=== PATIENT | male | born 1980 | race Caucasian/White ===

== ENCOUNTER 2017-07-07 23:59 | Emergency (ER) | payer OTHER ==
[2017-07-08] MEDS ORDERED: ZIPRASIDONE 20 MG INJ IM ONE ×2 (00:17→00:30)
[2017-07-08] MEDS ORDERED: LORazepam 2 MG/ML, 1ML ONE ×2 (00:19→02:21)
[2017-07-08] MEDS ORDERED: SODIUM CHLORIDE 0.9% 1,000ML IVBOLUS ONE (00:30)
[2017-07-08] MEDS ORDERED: SODIUM CHLORIDE FLUSH 10ML SYR IVF ONE (00:30)
[2017-07-08] MEDS ORDERED: LORazepam 2 MG/ML, 1ML IVPush ONE ×3 (00:30→02:30)
[2017-07-08 00:53] LABS: HEMATOCRIT 44.3 % (39.2-51.8); HEMOGLOBIN 14.6 g/dL (13.7-18.0); WHITE BLOOD COUNT 11.4 x10^3/uL (3.4-10)
[2017-07-08 01:04] LABS: BLOOD UREA NITROGEN 24 mg/dL (7-18)
[2017-07-08] MEDS ORDERED: PLEASE ENTER HEIGHT AND WEIGHT MC SCH (01:30)
[2017-07-08] MEDS ORDERED: DIPH,PERTUSS(ACELL),TET VAC/PF 0.5 ML IM-VACC ONE (02:30)
[2017-07-08] MEDS ORDERED: BACITRACIN ZINC OINT 500U/GM, 0.9 GM ONE (02:44)
[2017-07-08 04:21] VITALS: BP 126/68
== END 2017-07-08 04:28 | disposition home or self-care (01) ==
LOC: ED 07-08 00:47
DX: S00.81XA Abrasion of other part of head, initial encounter (principal); S09.90XA Unspecified injury of head, initial encounter; F10.220 Alcohol dependence with intoxication, uncomplicated; Z00.00 Encounter for general adult medical examination without abnormal findings; X58.XXXA Exposure to other specified factors, initial encounter; Y93.89 Activity, other specified; Y92.89 Other specified places as the place of occurrence of the external cause; Y99.8 Other external cause status
CPT/HCPCS: 36415; 70450; 72125; 80048; 80307; 85025; 96372; 96374; 96376; 99285; J2060; J3486

== ENCOUNTER 2020-11-24 14:55 | Inpatient (IN) | payer MEDICAID ==
[~2020-11-24] VITALS: Ht 172.7 cm; Wt 110.7 kg
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
[2020-11-24 16:32] LABS: BASOPHILS % (AUTO) 1 % (0-1); EOSINOPHILS % (AUTO) 2 % (1-7); LYMPHOCYTES % (AUTO) 35 % (22-44); MEAN CORPUSCULAR HEMOGLOBIN 31.3 pg (27.5-34.5); MEAN CORPUSCULAR HGB CONC 33.9 g/dL (33.2-36.2); MEAN PLATELET VOLUME 8.1 fL (7.4-10.4); MONOCYTES % (AUTO) 9 % (2-9); NEUTROPHILS % (AUTO) 53 % (42-75); PLATELET COUNT 264 x10^3/uL (130-400); RED BLOOD COUNT 4.78 x10^6/uL (4.38-5.82); RED CELL DISTRIBUTION WIDTH 13.1 % (9.4-14.8)
[2020-11-24 16:34] LABS: MD NO
--- NOTE | 2020-11-24 16:35 | NUR ---
PT RESTING IN [place] AT THIS TIME, SITTER IN DIRECT LINE OF SIGHT, MONITORING IN PLACE, PER PT NO NEEDS.
[2020-11-24 16:42] LABS: ALANINE AMINOTRANSFERASE 45 U/L (12-78); ALBUMIN 3.6 g/dL (3.4-5.0); ANION GAP 5 mmol/L (5-15); CALCIUM 8.6 mg/dL (8.5-10.1); CHLORIDE 110 mmol/L (98-107); SALICYLATE LEVEL 2.4 mg/dL (2.8-20.0)
[2020-11-24 16:45] LABS: ALKALINE PHOSPHATASE 74 U/L (45-117); BILIRUBIN,TOTAL 0.2 mg/dL (0.2-1.0); TOTAL PROTEIN 7.4 g/dL (6.4-8.2)
[2020-11-24 17:36] LABS: AMPHETAMINE SCREEN, URINE Negative (Negative); BARBITURATE SCREEN, URINE Negative (Negative); BENZODIAZEPINE SCREEN, URINE Negative (Negative); CANNABINOID SCREEN, URINE Negative (Negative); COCAINE SCREEN, URINE Negative (Negative); METHADONE SCREEN, URINE Negative (Negative); OPIATE SCREEN, URINE Negative (Negative)
--- NOTE | 2020-11-24 18:59 | NUR ---
PT IN [facility] STATES HE FEELING DIZZY, PT IS DIAPHORETIC, BP IS 76/47, PULSE OX 90% RA. DR. KEARNEY AT BEDSIDE. STARTED 1L NS AND PLACED 2L NC ON PT. PT'S PULSE OX AT 95% AFTER O2 PLACEMENT. WCTM. PT HAS ALL MONITORING IN PLACE.
[2020-11-24] MEDS ORDERED: SODIUM CHLORIDE 0.9% 1,000ML IVBOLUS ONE ×3 (19:00→21:00)
[2020-11-24] MEDS ORDERED: SODIUM CHLORIDE FLUSH 10ML SYR IVF ONE (19:00)
--- NOTE | 2020-11-24 19:00 | NUR ---
Erick damico in [facility] - 11/24/20 at 1929 by RANDA REPEAT REBECCAG DONE D/T PT CONDITION CHANGE.
--- NOTE | 2020-11-24 19:00 | NUR ---
REPEAT EKG DONE D/T PT CONDITION CHANGE.
[2020-11-24] MEDS ORDERED: ONDANSETRON 2MG/ML, 2ML ONE ×2 (19:07→22:16)
[2020-11-24] MEDS ORDERED: ONDANSETRON 2MG/ML, 2ML IVPush ONE ×2 (19:30→22:30)
--- NOTE | 2020-11-24 20:24 | NUR ---
PT RESTING IN BED WITH NO COMPLAINTS, PER ERP PT WILL BE MEDICAL ADMIT, VSS AFTER 2ND LITER
--- NOTE | 2020-11-24 20:42 | NUR ---
PT BP 67/41. PT STATES HE IS NOT FEELING DIZZY OR NAUSEATED ANYMORE. DR. KEARNEY AWARE, WILL START 3RD LITER OF NS.
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
[2020-11-24] MEDS ORDERED: CALCIUM GLUCONATE 4.6 MEQ/10 ML ONE ×2 (21:39→23:23)
[2020-11-24] MEDS ORDERED: CALCIUM GLUCONATE 4.6 MEQ/10 ML IVPush ONE ×2 (22:00→22:30)
--- NOTE | 2020-11-24 22:31 | NUR ---
PT PROVIDED FOOD AND WATER, PT RESTING IN [facility], ALL MONITORING IN PLACE.
--- NOTE | 2020-11-24 22:55 | NUR ---
PT'S BP 85/48, DR. KEARNEY AWARE. PER DR. KEARNEY HOLD CALCIUM UNLESS SYSTOLIC LESS THAN 80.
--- NOTE | 2020-11-24 23:26 | NUR ---
PT FEELING NAUSEOUS, APPEARS DIAPHORETIC, BP IS 80/51. DR. KEARNEY AWARE, PER DR. KEARNEY GIVE SECOND DOSE OF CALCIUM GLUCONATE.
[2020-11-25] MEDS ORDERED: NOREPINEPHRINE 8 MG in SODIUM CHLORIDE 0.9% 242 ML IV PRN
--- NOTE | 2020-11-25 00:15 | NUR ---
PER DR. KEARNEY TO START LEVO DRIP THROUGH PIV AT 0.1MCG/KG/MIN.
--- NOTE | 2020-11-25 00:19 | NUR ---
REPORT GIVEN TO JOHNSON AMAYA.
--- NOTE | 2020-11-25 00:39 | NUR ---
REORT RECIEVED, LEVOPHED RUNNING, VSS, PT SLEEPING WITH NO COMPLAINTS AT THIS TIME
[2020-11-25] MEDS ORDERED: SODIUM CHLORIDE FLUSH 10ML SYR IVF PRN (02:00)
[2020-11-25] MEDS ORDERED: ARIP5TAB13 PO (02:14)
[2020-11-25] MEDS ORDERED: DIVA250T4 PO (02:14)
[2020-11-25] MEDS ORDERED: BUPR-86 PO (02:14)
[2020-11-25] MEDS ORDERED: AMLO-211 PO (02:14)
--- NOTE | 2020-11-25 02:14 | NUR ---
PT RESTING IN BED, VSS, NO COMPLAINTS
[2020-11-25] MEDS ORDERED: ONDANSETRON ODT 4 MG PO PRN (03:30)
[2020-11-25] MEDS ORDERED: PROMETHAZINE 25 MG/ML, 1ML IM PRN (03:30)
[2020-11-25] MEDS ORDERED: POLYETHYLENE GLYCOL 17 GM PACKET PO PRN (03:30)
[2020-11-25] MEDS ORDERED: DOCUSATE 100 MG CAPSULE PO PRN (03:30)
[2020-11-25] MEDS ORDERED: BISACODYL 10 MG SUPP PR PRN (03:30)
[2020-11-25] MEDS ORDERED: ONDANSETRON 2MG/ML, 2ML IVPush PRN (03:30)
--- NOTE | 2020-11-25 03:50 | NUR ---
PT SLEEPING SOUNDLY WITH NO COMPLAINTS, VSS
--- NOTE | 2020-11-25 04:15 | NUR ---
LEVOPHED TURNED OFF AT THIS TIME, ADMITTING DR ATA, PT WILL BE TRIALED FOR 1-2 HOURS BEFORE POSSIBLE DOWNGRADE.
[2020-11-25] MEDS ORDERED: HEPARIN 5,000 UNITS/ML, 1ML ONE ×2 (04:39→13:11)
[2020-11-25] MEDS: HEPARIN 5,000 UNITS/ML, 1ML SQ SCH ×3 (04:40→21:50)
[2020-11-25] MEDS: SODIUM CHLORIDE 0.9% 1,000 ML IV SCH ×3 (04:41→21:49)
[2020-11-25] MEDS ORDERED: CALCIUM CARBONATE 500 MG TAB.CHEW ONE (04:51)
[2020-11-25] MEDS ORDERED: CALCIUM CARBONATE 500 MG TAB.CHEW PO ONE (05:00)
--- NOTE | 2020-11-25 05:19 | NUR ---
pt remains stable without levophed running, per admitting doc pt will be downgraded to med tele. pt sleeping in bed with no complaints at this time
[2020-11-25 05:24] LABS: BASOPHILS % (AUTO) 1 % (0-1); EOSINOPHILS % (AUTO) 0 % (1-7); LYMPHOCYTES % (AUTO) 22 % (22-44); MEAN CORPUSCULAR HEMOGLOBIN 31.4 pg (27.5-34.5); MEAN PLATELET VOLUME 8.2 fL (7.4-10.4); MONOCYTES % (AUTO) 8 % (2-9); NEUTROPHILS % (AUTO) 69 % (42-75); PLATELET COUNT 253 x10^3/uL (130-400); RED BLOOD COUNT 4.31 x10^6/uL (4.38-5.82)
[2020-11-25 05:29] LABS: ALBUMIN 3.2 g/dL (3.4-5.0); ANION GAP 10 mmol/L (5-15); CALCIUM 7.9 mg/dL (8.5-10.1); CHLORIDE 113 mmol/L (98-107)
--- NOTE | 2020-11-25 05:40 | NUR ---
LATE ENTRY D/T PT CARE: PT REPORT RECEIVED FROM JOSE LUIS ORNELAS, PT CARE TRANSFERRED AT THIS TIME. PT MOVED TO ROOM 3, SITTER IN LINE OF SIGHT, SI PRECAUTIONS IN PLACE. PT BED IN LOWEST, RAILS ENGAGED, APPEARS COMFORTABLE, DENIES ADDITIONAL NEEDS, VSS AT THIS TIME. [id number].
[2020-11-25 05:42] LABS: ALANINE AMINOTRANSFERASE 37 U/L (12-78); ALKALINE PHOSPHATASE 65 U/L (45-117); BILIRUBIN,TOTAL 0.3 mg/dL (0.2-1.0); CREATININE 1.61 mg/dL (0.7-1.3); TOTAL PROTEIN 6.6 g/dL (6.4-8.2)
[2020-11-25 05:46] LABS: MD NO
--- NOTE | 2020-11-25 06:38 | NUR ---
SPOKE WITH NEW HOSPITALIST ABOUT THE NIGHT DOC'S INTENT TO DOWNGRADE THE PATIENT, HOSPITALIST STATES THAT HE WILL TAKE A LOOK AT THE CHART.
--- NOTE | 2020-11-25 06:50 | NUR ---
REPORT PROVIDED TO CJ ORNELAS, PT CARE TRANSFERRED AT THIS TIME, PT NAD, RESTING ON GURNEY, PLACED ON 2L NC FOR LOW SPO2 OF 88% WHILE SLEEPING.
--- NOTE | 2020-11-25 07:05 | NUR ---
rec'd report from nightclub manager. pt sleeping in bed. appears in no acute distress. vss. sitter at door.
--- NOTE | 2020-11-25 08:24 | NUR ---
PT GIVEN MEAL TRAY. VSS
--- NOTE | 2020-11-25 09:40 | NUR ---
pt resting in bed watching tv. vss
--- NOTE | 2020-11-25 09:57 | NUR ---
report recived. pt in bed, vss, no distress, sitter in [place]
--- NOTE | 2020-11-25 11:00 | NUR ---
LATE NOTE. PT IN BED , NO DISTRESS
--- NOTE | 2020-11-25 12:15 | NUR ---
SPOKE TO PTS MOM WITH PT6 PERMISSION, PT IN BED ROOM SECURED
--- NOTE | 2020-11-25 12:52 | NUR ---
report given to bossman hernandez, transfered to tele 2, vss, no distress
[2020-11-25 13:31] VITALS: BP 146/72
[2020-11-25] MEDS ORDERED: CALCIUM CARBONATE 500 MG TAB.CHEW PO PRN (15:00)
[2020-11-25] MEDS ORDERED: NICO-486 TD (17:53)
[2020-11-25] MEDS ORDERED: FAMO40TA4 PO (17:53)
[2020-11-25] MEDS ORDERED: [UNRECOGNIZED DRUG - OTHER] (17:53)
[2020-11-25] MEDS ORDERED: FLUO10CA15 PO (17:53)
[2020-11-25] MEDS ORDERED: TRIAMCINOLON (17:55)
[2020-11-25 19:11] VITALS: BP 117/71
[2020-11-26 01:17] VITALS: BP 110/64
[2020-11-26] MEDS: SODIUM CHLORIDE 0.9% 1,000 ML IV SCH (03:55)
[2020-11-26] MEDS: HEPARIN 5,000 UNITS/ML, 1ML SQ SCH ×2 (05:14→12:44)
[2020-11-26 08:59] VITALS: BP 116/76
[2020-11-26 11:32] LABS: ANION GAP 7 mmol/L (5-15); CALCIUM 8.7 mg/dL (8.5-10.1); CHLORIDE 108 mmol/L (98-107)
[2020-11-26 11:35] LABS: CREATININE 0.96 mg/dL (0.7-1.3)
[2020-11-26 13:24] VITALS: BP 91/51
[2020-11-26 14:34] LABS: ALANINE AMINOTRANSFERASE 30 U/L (12-78); ANION GAP 6 mmol/L (5-15); CALCIUM 8.4 mg/dL (8.5-10.1); CHLORIDE 108 mmol/L (98-107)
[2020-11-26 14:36] LABS: ALKALINE PHOSPHATASE 65 U/L (45-117); BILIRUBIN,TOTAL 0.3 mg/dL (0.2-1.0); TOTAL PROTEIN 6.5 g/dL (6.4-8.2)
[2020-11-27] MEDS ORDERED: DIVA500T4 PO (00:59)
[2020-11-27] MEDS ORDERED: BUPR150T28 PO (00:59)
== END 2020-11-26 17:32 | DRG 917 ==
LOC: ED 16:58 → EDIP 11-25 01:57 → 4WST 11-25 13:26
PROVIDERS: ADMIT Internal Medicine; ATTEND Hospitalist
DX: T46.1X2A Poisoning by calcium-channel blockers, intentional self-harm, initial encounter (principal); N17.0 Acute kidney failure with tubular necrosis; F33.2 Major depressive disorder, recurrent severe without psychotic features; K21.9 Gastro-esophageal reflux disease without esophagitis; F12.90 Cannabis use, unspecified, uncomplicated; F17.210 Nicotine dependence, cigarettes, uncomplicated; F25.1 Schizoaffective disorder, depressive type; Z20.822 Contact with and (suspected) exposure to COVID-19; G47.30 Sleep apnea, unspecified; I10 Essential (primary) hypertension; I95.2 Hypotension due to drugs; R00.0 Tachycardia, unspecified; Y92.89 Other specified places as the place of occurrence of the external cause
CPT/HCPCS: 36415; 80048; 80053; 80299; 80307; 80320; 80329; 83735; 84100; 84443; 85025; 87426; 93005; 96361; 96374; G0378; J1644; J2405; G0480; J0610; J7030; J7050

== ENCOUNTER 2020-11-26 16:05 | Inpatient (IN) | payer MEDICAID ==
[~2020-11-26] VITALS: Ht 175.3 cm; Wt 105.6 kg
[~2020-11-26 16:05] MED LIST: AMLO-211 PO; ARIP5TAB13 PO; BUPR-86 PO; DIVA250T4 PO; FAMO40TA4 PO; FLUO10CA15 PO; NICO-486 TD; TRIAMCINOLON; [UNRECOGNIZED DRUG - OTHER]
[2020-11-26 16:57] VITALS: BP 110/74
[2020-11-26] MEDS ORDERED: ACETAMINOPHEN 325 MG TABLET PO PRN (17:00)
[2020-11-26] MEDS ORDERED: POLYETHYLENE GLYCOL 17 GM PACKET PO PRN (17:00)
[2020-11-26] MEDS ORDERED: DOCUSATE 100 MG CAPSULE PO PRN (17:00)
[2020-11-26] MEDS ORDERED: ONDANSETRON ODT 4 MG PO PRN (17:00)
[2020-11-26] MEDS ORDERED: BISACODYL 10 MG SUPP PR PRN (17:00)
[2020-11-26 19:46] VITALS: BP 110/72
[2020-11-26] MEDS: DIVALPROEX 500 MG TABLET.DR PO SCH (20:37)
[2020-11-27] MEDS ORDERED: BUPR150T28 PO (00:59)
[2020-11-27] MEDS ORDERED: DIVA500T4 PO (00:59)
[2020-11-27 05:39] LABS: CHOL/HDL RATIO 4.4; LDL/HDL RATIO 2.5 (0.5-3.0)
[2020-11-27 07:14] VITALS: BP 121/81
[2020-11-27] MEDS: NICOTINE 14MG/24 HR PATCH.TD24 TD SCH (08:34)
[2020-11-27] MEDS: BUPROPION SR 150 MG TABLET PO SCH (08:35)
[2020-11-27] MEDS ORDERED: OMEPRAZOLE 20 MG CAPSULE.DR ONE (08:44)
[2020-11-27] MEDS ORDERED: ARIPIPRAZOLE 15 MG TABLET PO SCH (09:00)
[2020-11-27] MEDS ORDERED: OMEPRAZOLE 20 MG CAPSULE.DR PO SCH (09:00)
[2020-11-27] MEDS ORDERED: FLU VACC QS2020-21(6MOS UP)/PF 60MCG/0.5 ML SYR IM-VACC ONE (12:00)
[2020-11-27 12:30] LABS: MICROSCOPIC NOT IND
[2020-11-27] MEDS: PALIPERIDONE 3 MG TAB.ER.24 PO SCH (16:52)
[2020-11-27] MEDS: OMEPRAZOLE 20 MG CAPSULE.DR PO SCH (16:53)
[2020-11-27 19:45] VITALS: BP 115/74
[2020-11-27] MEDS: DIVALPROEX 500 MG TABLET.DR PO SCH (19:46)
[2020-11-28] MEDS: OMEPRAZOLE 20 MG CAPSULE.DR PO SCH ×2 (06:25→16:10)
[2020-11-28 07:14] VITALS: BP 114/77
[2020-11-28] MEDS: NICOTINE 14MG/24 HR PATCH.TD24 TD SCH (08:26)
[2020-11-28] MEDS: PALIPERIDONE 3 MG TAB.ER.24 PO SCH (08:26)
[2020-11-28] MEDS: BUPROPION SR 150 MG TABLET PO SCH (08:26)
[2020-11-28 19:45] VITALS: BP 114/77
[2020-11-28] MEDS: DIVALPROEX 500 MG TABLET.DR PO SCH (20:19)
[2020-11-29] MEDS: OMEPRAZOLE 20 MG CAPSULE.DR PO SCH ×2 (05:30→16:32)
[2020-11-29 07:13] VITALS: BP 108/71
[2020-11-29] MEDS: NICOTINE 14MG/24 HR PATCH.TD24 TD SCH (08:43)
[2020-11-29] MEDS: BUPROPION SR 150 MG TABLET PO SCH (08:43)
[2020-11-29] MEDS: PALIPERIDONE 3 MG TAB.ER.24 PO SCH (08:43)
[2020-11-29 19:30] VITALS: BP 146/87
[2020-11-29] MEDS: DIVALPROEX 500 MG TABLET.DR PO SCH (20:25)
[2020-11-30] MEDS: OMEPRAZOLE 20 MG CAPSULE.DR PO SCH ×2 (05:51→16:24)
[2020-11-30 07:11] VITALS: BP 120/85
[2020-11-30] MEDS: PALIPERIDONE 3 MG TAB.ER.24 PO SCH (08:51)
[2020-11-30] MEDS: NICOTINE 14MG/24 HR PATCH.TD24 TD SCH (08:51)
[2020-11-30] MEDS: BUPROPION SR 150 MG TABLET PO SCH (08:51)
[2020-11-30] MEDS ORDERED: PALI3TAB11 PO (15:31)
[2020-11-30] MEDS ORDERED: BUPR150T73 PO (15:31)
[2020-11-30] MEDS ORDERED: DIVA-61 PO (15:31)
[2020-11-30] MEDS ORDERED: PALIPERIDONE PALMITATE 234 MG/1.5 ML IM ONE (16:00)
[2020-11-30 19:52] VITALS: BP 128/87
[2020-11-30] MEDS: DIVALPROEX 500 MG TABLET.DR PO SCH (20:33)
[2020-12-01] MEDS: OMEPRAZOLE 20 MG CAPSULE.DR PO SCH (06:03)
[2020-12-01 07:44] VITALS: BP 128/93
[2020-12-01] MEDS: BUPROPION SR 150 MG TABLET PO SCH (09:09)
[2020-12-01] MEDS: PALIPERIDONE 3 MG TAB.ER.24 PO SCH (09:09)
[2020-12-01] MEDS: NICOTINE 14MG/24 HR PATCH.TD24 TD SCH (09:10)
== END 2020-12-01 09:57 | disposition home or self-care (01) | DRG 885 ==
LOC: 3E 16:32
PROVIDERS: ADMIT Psychiatry & Neurology Psychosomatic Medicine; ATTEND Psychiatry & Neurology Psychosomatic Medicine
DX: F25.0 Schizoaffective disorder, bipolar type (principal); G47.30 Sleep apnea, unspecified; F17.200 Nicotine dependence, unspecified, uncomplicated; I10 Essential (primary) hypertension; K21.9 Gastro-esophageal reflux disease without esophagitis; T43.291A Poisoning by other antidepressants, accidental (unintentional), initial encounter; Z91.5 Personal history of self-harm; Y92.89 Other specified places as the place of occurrence of the external cause; Z79.899 Other long term (current) drug therapy
CPT/HCPCS: 36415; 71045; 80061; 81003; 90686; 93005; J2426